=== PATIENT | female | born 1960 | race Two or more races ===

== ENCOUNTER 2022-12-24 07:12 | Outpatient (CLI) | payer OTHER | END 2022-12-24 07:14 | disposition home or self-care (01) | LOC: NUCLEAR 07:12 | PROVIDERS: ATTEND Internal Medicine Cardiovascular Disease | DX: Z85.3 Personal history of malignant neoplasm of breast (principal) | CPT/HCPCS: 78306; A9503 ==

== ENCOUNTER 2023-01-08 08:16 | Outpatient (CLI) | payer OTHER | END 2023-01-08 08:19 | disposition home or self-care (01) | LOC: SONOGRAMA 08:16 | PROVIDERS: ATTEND Pathology Anatomic Pathology & Clinical Pathology | DX: D34 Benign neoplasm of thyroid gland (principal); E04.9 Nontoxic goiter, unspecified ==